=== PATIENT | male | born 1955 | race Caucasian/White ===

== ENCOUNTER 2023-07-18 11:12 | Outpatient (CLI) | payer OTHER | END 2023-07-18 11:14 | disposition home or self-care (01) | LOC: TOM 11:12 | PROVIDERS: ATTEND Orthopaedic Surgery | DX: M25.551 Pain in right hip (principal); M25.552 Pain in left hip ==

== ENCOUNTER 2024-03-18 09:01 | Outpatient (CLI) | payer OTHER ==
[2024-03-18 09:47] LABS: HEMATOCRIT 42.3 % (39.0-48.0); HEMOGLOBIN 14.5 g/dL (13-16.00); MEAN CELL VOLUME 92.7 fL (80.0-100.00); MEAN CORPUSCULAR HEMOGLOBIN 31.7 pg (27.00-32.0); MEAN CORPUSCULAR HGB CONC 34.2 g/dl (32.0-36.0); PLATELET COUNT 290 K/uL (150-450); RED BLOOD COUNT 4.57 M/uL (4.00-6.00); RED CELL DISTRIBUTION WIDTH 16.4 % (11.5-14.5)
[2024-03-18 09:55] LABS: PH,URINE 6.5 (5.0-8.0); URINE APPEARANCE Clear; URINE BILIRRUBIN Negative (NEGATIVE); URINE BLOOD Negative; URINE COLOR Yellow; URINE GLUCOSE Negative (NEGATIVE); URINE KETONE Negative (NEGATIVE); URINE LEUKOCYTE Negative; URINE NITRATE Negative; URINE PROTEIN Negative (NEGATIVE)
[2024-03-18 09:56] LABS: URINE RBC 3.3 uL (0.0-20.8)
[2024-03-18 10:02] LABS: URINE BACTERIA 2.4 uL (0.0-1933); URINE EPITHELIAL CELLS 0.7 uL (0.0-38.8); URINE WBC 0.3 uL (0.0-23.2)
[2024-03-18 10:40] LABS: INR 1.09; PARTIAL THROMBOPLASTIN TIME 31.7 SECONDS (22.0-34.0); PROTHROMBIN TIME 11.8 SECONDS (9.0-11.5)
[2024-03-18 10:54] LABS: ALBUMIN 3.6 gm/dL (3.4-5.0); BILIRUBIN TOTAL 0.84 mg/dL (0.3-1.2); CALCIUM 8.8 mg/dL (8.5-10.1); CREATININE SERUM 0.83 mg/dL (0.70-1.30); GFR 92.13; GLOBULINA 3.3 G/DL (2.4-3.5); MAGNESIUM 2.3 mg/dL (1.8-2.4); POTASSIUM 4.02 mEq/L (3.5-5.1); TOTAL PROTEIN 6.9 gm/dL (6.4-8.2)
== END 2024-03-18 09:13 | disposition home or self-care (01) ==
LOC: LAB 09:01
PROVIDERS: ATTEND Orthopaedic Surgery
DX: E55.9 Vitamin D deficiency, unspecified (principal); M85.9 Disorder of bone density and structure, unspecified; E56.1 Deficiency of vitamin K; D64.9 Anemia, unspecified; E88.89 Other specified metabolic disorders; N39.0 Urinary tract infection, site not specified; Z22.322 Carrier or suspected carrier of Methicillin resistant Staphylococcus aureus; D68.8 Other specified coagulation defects; Z76.89 Persons encountering health services in other specified circumstances

== ENCOUNTER 2024-07-01 09:25 | Outpatient (CLI) | payer OTHER | END 2024-07-01 09:33 | disposition home or self-care (01) | LOC: RAD 09:25 | PROVIDERS: ATTEND Orthopaedic Surgery | DX: M25.551 Pain in right hip (principal); M25.552 Pain in left hip ==

== ENCOUNTER 2024-08-05 08:56 | Outpatient (CLI) | payer OTHER | END 2024-08-05 09:04 | disposition home or self-care (01) | LOC: TOM 08:56 | PROVIDERS: ATTEND Orthopaedic Surgery | DX: M25.551 Pain in right hip (principal); M16.11 Unilateral primary osteoarthritis, right hip; M25.552 Pain in left hip ==

== ENCOUNTER 2024-09-22 09:54 | Outpatient (CLI) | payer OTHER ==
[~2024-09-22] VITALS: Ht 172.7 cm; Wt 102.5 kg
[2024-09-22 10:54] VITALS: BP 128/82
[2024-09-22 11:16] LABS: PH,URINE 6.5 (5.0-8.0); URINE APPEARANCE Clear; URINE BILIRRUBIN Negative (NEGATIVE); URINE BLOOD Negative; URINE COLOR Yellow; URINE GLUCOSE Negative (NEGATIVE); URINE KETONE Negative (NEGATIVE); URINE LEUKOCYTE Negative; URINE NITRATE Negative; URINE PROTEIN Negative (NEGATIVE)
[2024-09-22 11:16] LABS: COL EPI 90 SECONDS (82-175); INR 1.07; PARTIAL THROMBOPLASTIN TIME 27.5 SECONDS (22.0-34.0); PROTHROMBIN TIME 11.6 SECONDS (9.0-11.5)
[2024-09-22 11:17] LABS: URINE BACTERIA 8.5 uL (0.0-1933); URINE EPITHELIAL CELLS 2.8 uL (0.0-38.8)
[2024-09-22 11:19] LABS: URINE WBC 1.7 uL (0.0-23.2)
[2024-09-22 12:25] LABS: ALBUMIN 3.6 gm/dL (3.4-5.0); BILIRUBIN TOTAL 1.42 mg/dL (0.3-1.2); CALCIUM 8.7 mg/dL (8.5-10.1); CREATININE SERUM 0.98 mg/dL (0.70-1.30); GFR 76.06; GLOBULINA 2.9 G/DL (2.4-3.5); POTASSIUM 3.99 mEq/L (3.5-5.1); TOTAL PROTEIN 6.5 gm/dL (6.4-8.2)
[2024-09-22 15:24] LABS: BASO % 0.4 % (0.1-1.2); EOS # 0.07 (0.04-0.54); HEMATOCRIT 43.7 % (40.1-51.0); LYMPH # 1.42 (1.18-3.74); MEAN CORPUSCULAR HEMOGLOBIN 32.3 pg (25.6-32.2); MONO % 10.4 % (4.7-12.5); NEUT # 4.51 (1.56-6.13); NEUT % 66.9 % (34.0-71.1); PLATELET COUNT 316 K/uL (163-369); RED BLOOD COUNT 4.64 M/uL (4.63-6.08); RED CELL DISTRIBUTION WIDTH 13.7 % (11.6-14.4)
== END 2024-09-22 10:05 | disposition home or self-care (01) ==
LOC: RAD 09:54
PROVIDERS: ATTEND Orthopaedic Surgery
DX: D64.9 Anemia, unspecified (principal); E88.89 Other specified metabolic disorders; D68.8 Other specified coagulation defects; N39.0 Urinary tract infection, site not specified; Z22.322 Carrier or suspected carrier of Methicillin resistant Staphylococcus aureus; E11.9 Type 2 diabetes mellitus without complications; Z76.89 Persons encountering health services in other specified circumstances; I10 Essential (primary) hypertension

== ENCOUNTER 2024-10-02 14:30 | Inpatient (IN) | payer OTHER ==
[~2024-10-02] VITALS: Ht 172.7 cm; Wt 101.2 kg
[2024-10-02] MEDS ORDERED: ELIQUIS2.5 MG PO (15:45)
[2024-10-02] MEDS ORDERED: LOSARTAN-HCTZ1 EAC1 PO (15:45)
[2024-10-02 15:50] VITALS: BP 125/82
[2024-10-06] MEDS ORDERED: SUGAMMADEX SODIUM 200 MG/2 ML VIAL IV ONE (13:45)
[2024-10-06] MEDS ORDERED: TRAMADOL HCL 50 MG TABLET PO PRN (14:45)
[2024-10-06] MEDS ORDERED: ONDANSETRON HCL 2 MG/ML VIAL IV PRN (14:45)
[2024-10-06] MEDS ORDERED: PROMETHAZINE HCL 50 MG/ML AMPUL IM PRN (14:45)
[2024-10-06] MEDS ORDERED: MEPERIDINE HCL/PF 50 MG/ML VIAL IM PRN (14:45)
[2024-10-06] MEDS ORDERED: SODIUM CHLORIDE 0.45 % 1,000 ML IV SCH (14:45)
[2024-10-06] MEDS ORDERED: ONDANSETRON 4 MG TAB.RAPDIS PO PRN (14:45)
[2024-10-06] MEDS ORDERED: MORPHINE SULFATE 4 MG/ML CARTRIDGE IV PRN (15:15)
[2024-10-06] MEDS ORDERED: CEFAZOLIN SODIUM 1,000 MG VIAL IV ONE (15:15)
[2024-10-06] MEDS ORDERED: TRANEXAMIC ACID 100MG/1ML (1000MG) AMPUL IV ONE (15:15)
[2024-10-06] MEDS ORDERED: CELECOXIB 200 MG CAPSULE PO SCH (17:00)
[2024-10-06] MEDS ORDERED: CEFAZOLIN SODIUM 1,000 MG VIAL IV SCH (17:00)
[2024-10-06] MEDS ORDERED: PANTOPRAZOLE SODIUM 40 MG TABLET.DR PO SCH (17:00)
[2024-10-06] MEDS ORDERED: ACETAMINOPHEN 325 MG TABLET PO SCH (17:00)
[2024-10-06 20:00] VITALS: BP 115/70; O2SAT 97
[2024-10-06] MEDS ORDERED: KETOROLAC TROMETHAMINE 10 MG TABLET PO SCH (21:00)
[2024-10-07 01:19] VITALS: BP 100/65; O2SAT 99
[2024-10-07 07:15] LABS: BASO % 0.1 % (0.1-1.2); EOS # 0.00 (0.04-0.54); EOS % 0.0 % (0.7-7.0); LYMPH # 1.05 (1.18-3.74); LYMPH % 13.6 % (19.3-53.1); MEAN PLATELET VOLUME 9.40 fl (9.4-12.4); MONO # 0.88 (0.24-0.82); MONO % 11.4 % (4.7-12.5); NEUT # 5.79 (1.56-6.13); NEUT % 74.8 % (34.0-71.1); RED CELL DISTRIBUTION WIDTH 13.2 % (11.6-14.4)
[2024-10-07 08:00] VITALS: BP 98/61; O2SAT 97
[2024-10-07] MEDS ORDERED: RIVAROXABAN 10 MG TAB PO SCH (09:00)
[2024-10-07] MEDS ORDERED: IRON FUM,PS/FOLIC/BCOMP,C NO.9 1 CAP CAPSULE PO NR (11:00)
[2024-10-07 16:31] LABS: ALT/SGPT 25.0 U/L (12-78); AST/SGOT 42.0 U/L (15-37); BILIRUBIN TOTAL 2.05 mg/dL (0.3-1.2); BUN CREA RATIO 21.0 (7.0-25.0); CREATININE SERUM 1.07 mg/dL (0.70-1.30); GFR 68.72; GLOBULINA 2.5 G/DL (2.4-3.5); GLUCOSE FASTING 133.0 mg/dL (65-100); OSMOLALITY SERUM 279.0 MOSM/KG (275-295)
[2024-10-07 16:51] VITALS: BP 102/66; O2SAT 96
[2024-10-08 00:36] VITALS: BP 103/65; O2SAT 99
[2024-10-08 08:00] VITALS: BP 101/67; O2SAT 95
[2024-10-08 08:34] LABS: BASO % 0.2 % (0.1-1.2); EOS # 0.10 (0.04-0.54); EOS % 1.0 % (0.7-7.0); LYMPH # 0.84 (1.18-3.74); LYMPH % 8.2 % (19.3-53.1); MEAN PLATELET VOLUME 9.90 fl (9.4-12.4); MONO # 1.18 (0.24-0.82); MONO % 11.5 % (4.7-12.5); NEUT # 8.07 (1.56-6.13); NEUT % 78.6 % (34.0-71.1); RED CELL DISTRIBUTION WIDTH 13.3 % (11.6-14.4)
[2024-10-08] MEDS ORDERED: IRON FUM,PS/FOLIC/BCOMP,C NO.9 1 CAP CAPSULE PO SCH (09:00)
[2024-10-08] MEDS ORDERED: SENNA/DOCUSATE SODIUM 1 TAB TABLET PO SCH (09:00)
[2024-10-08 16:00] VITALS: BP 108/67; O2SAT 95
[2024-10-09 01:03] VITALS: BP 111/74; O2SAT 98
[2024-10-09 08:00] VITALS: BP 127/77; O2SAT 99
== END 2024-10-09 14:50 | disposition home or self-care (01) | DRG 470 ==
LOC: O/R 10-06 05:40 → SURH 10-06 12:30
PROVIDERS: ADMIT Orthopaedic Surgery; ATTEND Orthopaedic Surgery
PROC: 0SR90JZ Replacement of Right Hip Joint with Synthetic Substitute, Open Approach (ICD-10-PCS; principal; 2024-10-06 12:30)
DX: M16.11 Unilateral primary osteoarthritis, right hip (principal); I48.91 Unspecified atrial fibrillation; I11.9 Hypertensive heart disease without heart failure; D64.9 Anemia, unspecified

== ENCOUNTER → 2024-10-24 14:04 | Outpatient (CLI) | payer OTHER ==
[~2024-10-24 14:04] MED LIST: ELIQUIS2.5 MG PO; LOSARTAN-HCTZ1 EAC1 PO
== END | disposition home or self-care (01) ==
LOC: NUCLEAR 13:00
PROVIDERS: ATTEND Orthopaedic Surgery
DX: I87.2 Venous insufficiency (chronic) (peripheral) (principal)

== ENCOUNTER 2025-02-18 09:51 | Outpatient (CLI) | payer OTHER | END 2025-02-18 09:57 | disposition home or self-care (01) | LOC: RAD 09:51 | PROVIDERS: ATTEND Orthopaedic Surgery | DX: M54.50 Low back pain, unspecified (principal); Z96.641 Presence of right artificial hip joint; M16.12 Unilateral primary osteoarthritis, left hip; M17.0 Bilateral primary osteoarthritis of knee ==